=== PATIENT | male | born 1970 | race African-American/Black ===

== ENCOUNTER 2023-06-14 15:51 | Emergency (ER) | payer OTHER ==
[~2023-06-14] VITALS: Ht 162.6 cm; Wt 122.0 kg
[2023-06-14 15:53] VITALS: O2SAT 98
[2023-06-14] MEDS: ACETAMINOPHEN 325MG TABLET PO STA (17:00)
[2023-06-14] MEDS ORDERED: CYCL5TAB MT (17:33)
[2023-06-14] MEDS ORDERED: NAPR-681 PO (17:33)
[2023-06-14 17:55] VITALS: BP 151/90; PULSE 85; RESP 19; TEMP 97.5
== END 2023-06-14 18:00 | disposition home or self-care (01) ==
LOC: ER 15:51
DX: M25.531 Pain in right wrist (principal); M79.641 Pain in right hand; R07.89 Other chest pain; V49.49XA Driver injured in collision with other motor vehicles in traffic accident, initial encounter; Y93.89 Activity, other specified; Y92.89 Other specified places as the place of occurrence of the external cause; Y99.8 Other external cause status
CPT/HCPCS: 71045; 73110; 73130; 99284